=== PATIENT | female | born 1985 | race Caucasian/White ===

== ENCOUNTER 2023-01-10 05:05 | Emergency (ER) | payer OTHER, MEDICAID, SELFPAY ==
[2023-01-10 05:16] VITALS: BP 118/70; PULSE 77; RESP 16; TEMP 37.1; O2SAT 98; BMI 30.2
== END 2023-01-10 07:15 | disposition left against medical advice (07) ==
PROVIDERS: Emergency Provider Emergency Medicine
DX: M79.645 Pain in left finger(s) (principal)
CPT/HCPCS: 99281

== ENCOUNTER 2024-11-03 03:36 | Emergency (ER) | payer OTHER, SELFPAY ==
[2024-11-03 03:37] VITALS: BP 118/74; PULSE 84; O2SAT 99
[2024-11-03 03:41] VITALS: BP 114/45; PULSE 81; RESP 16; TEMP 36.8; O2SAT 100; BMI 35.0
[2024-11-03 04:02] LABS: Hematocrit 39.4 % (37.0-47.0); Hemoglobin 13.1 g/dl (12.0-16.0); Mean Corpuscular HGB Conc 33.2 g/dl (31.0-35.0); Mean Corpuscular Hemoglobin 30.1 pg (27.0-33.0); Mean Corpuscular Volume 90.6 fL (80.0-98.0); Mean Platelet Volume 10.1 fL (9.4-12.3); Platelet Count 283 X10*3/uL (160-400); Red Blood Count 4.35 X10*6/uL (4.20-5.50); Red Cell Distribution Width 11.7 % (11.0-16.0); White Blood Count 10.8 X10*3/uL (4.8-10.8)
[2024-11-03 04:22] LABS: Alanine Aminotransferase 20 U/L (0-31); Albumin Level 4.8 g/dL (3.5-5.0); Anion Gap 13 (12-20); Aspartate Amino Transferase 26 U/L (5-31); Bilirubin Total 0.5 mg/dL (0.0-1.0); Blood Urea Nitrogen 13 mg/dL (9-16); Calcium 9.9 mg/dL (8.4-10.2); Carbon Dioxide 26 mmol/L (22-29); Chloride 105 mmol/L (96-108); Creatinine Clr Calc Pharmacy 114.6; Estimated Glomerular Filt Rate > 60; Glucose Random 94 mg/dL (60-115); Lipase 8 U/L (8-78); Potassium 4.4 mmol/L (3.3-5.1); Sodium 140 mmol/L (135-145); Total Protein 7.4 g/dL (6.5-8.0)
[2024-11-03 04:24] LABS: Alkaline Phosphatase 50 U/L (39-117)
[2024-11-03 04:25] LABS: HCG Quantitative < 2 mIU/mL
--- NOTE | 2024-11-03 04:48 | PC.NURSE ---
Pt is a&ox4, no signs of distress Pt reports 3/10 RLQ pain with radiation to right flank Pt reports she is chronically constipated d/t the suboxone she takes Pt reports a bowel movement this am [id number] and then the pain started. Pts mother at bedside Pt denies n/v Plan of care ongoing.
[2024-11-03 05:56] VITALS: BP 102/54; PULSE 64; RESP 16; TEMP 36.9; O2SAT 98
--- NOTE | 2024-11-03 06:41 | PC.NURSE ---
Pt requesting to leave w/o being seen This RN advised pt more providers would be coming in shortly, pt declined to stay and wait. Pt ambulates with a steady gait. Pt left with mother Pt reports pain subsided at this time
== END 2024-11-03 06:43 | disposition left against medical advice (07) ==
PROVIDERS: Emergency Provider Emergency Medicine
DX: M54.50 Low back pain, unspecified (principal); R11.0 Nausea; Z53.21 Procedure and treatment not carried out due to patient leaving prior to being seen by health care provider
CPT/HCPCS: 36415; 80053; 83690; 84702; 85027; 99281; 99284